=== PATIENT | male | born 1990 | race Caucasian/White ===

== ENCOUNTER 2019-03-09 21:01 | Emergency (ER) | payer SELFPAY ==
[~2019-03-09] VITALS: Ht 177.8 cm; Wt 131.5 kg
[2019-03-09] MEDS ORDERED: CYCL10TA9 PO (21:30)
[2019-03-09] MEDS ORDERED: IBUP-1780 PO (21:30)
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
[2019-03-09 21:34] VITALS: BP 158/106
== END 2019-03-09 21:36 | disposition home or self-care (01) ==
LOC: ER FS 21:03
DX: M54.2 Cervicalgia (principal); M54.6 Pain in thoracic spine; G89.29 Other chronic pain; V43.62XA Car passenger injured in collision with other type car in traffic accident, initial encounter; Y92.411 Interstate highway as the place of occurrence of the external cause
CPT/HCPCS: 99281